=== PATIENT | male | born 1975 | race Caucasian/White ===

== ENCOUNTER 2020-05-21 12:48 | Emergency (ER) | payer BC ==
[~2020-05-21] VITALS: Ht 167.6 cm; Wt 71.9 kg
[2020-05-21] MEDS ORDERED: [UNRECOGNIZED DRUG - REMARK] (12:55)
[2020-05-21 13:58] LABS: BASO # 0.1 10^3/uL (0.0-0.2); BASO % 1.4 % (0.0-1.0); EOS # 0.2 10^3/uL (0.0-0.5); EOS % 2.9 % (0.0-3.0); HEMATOCRIT 45.2 % (42.0-52.0); HEMOGLOBIN 15.7 g/dl (13.5-17.5); LYMPH # 2.4 10^3/uL (1.5-5.0); MEAN CORPUSCULAR HEMOGLOBIN 30.3 pg (27.0-33.0); MEAN CORPUSCULAR HGB CONC 34.7 g/dl (32.0-36.5); MEAN CORPUSCULAR VOLUME 87.3 fl (80.0-96.0); MONO # 0.5 10^3/uL (0.0-0.8); MONO % 7.4 % (0.0-5.0); NEUTROPHILS # 3.3 10^3/uL (1.5-8.5); NEUTROPHILS % 50.4 % (36.0-66.0); PLATELET COUNT, AUTOMATED 254 10^3/uL (150-450); RED BLOOD COUNT 5.18 10^6/uL (4.30-6.10); WHITE BLOOD COUNT 6.5 10^3/uL (4.0-10.0)
[2020-05-21 14:07] LABS: INR 0.87
[2020-05-21 14:08] LABS: PARTIAL THROMBOPLASTIN TIME 26.7 SECONDS (25.0-38.4)
[2020-05-21 14:19] LABS: BLOOD UREA NITROGEN 17 MG/DL (7-18); CALCIUM LEVEL 9.3 MG/DL (8.5-10.1); CARBON DIOXIDE LEVEL 30 MEQ/L (21-32); CHLORIDE LEVEL 105 MEQ/L (98-107); CREATININE FOR GFR 0.76 MG/DL (0.70-1.30); GLOMERULAR FILTRATION RATE > 60.0 (>60); GLUCOSE, FASTING 89 MG/DL (70-100); SODIUM LEVEL 139 MEQ/L (136-145)
--- NOTE | 2020-05-21 14:35 | REPVR ---
PROCEDURE INFORMATION: Exam: US Retroperitoneal Limited, Kidneys Exam date and time: 05/21/2020 2:15 PM Age: 45 years old Clinical indication: Other: Gross hematuria; Additional info: Gross hematuria-painless TECHNIQUE: Imaging protocol: Real-time ultrasound of the retroperitoneum with image documentation. Examination was focused on the kidneys. COMPARISON: No relevant prior studies available. FINDINGS: Right kidney: The right kidney measures 11.2 x 6.0 x 6.0 cm. Its resistive index measures 0.55. It contains a septated cyst measuring 1.4 x 1.3 x 1.2 cm in the upper pole. No hydronephrosis or demonstrated stone or mass. Left kidney: The left kidney measures 12.6 x 6.4 x 6.3 cm. Its resistive index measures 0.65. It demonstrates moderate hydronephrosis and there is at least proximal hydroureter. No demonstrated stone, cyst or mass. Bladder: The urinary bladder demonstrates a right ureteral jet, with the left ureteral jet not visualized. IMPRESSION: 1. Moderate left-sided hydronephrosis with at least proximal hydroureter, with the left ureteral jet not visualized. Obstructing stone or lesion is possible, and further urologic evaluation is recommended. 2. 1.4 cm septated right renal cyst. Recommend renal protocol CT to determine whether this warrants further evaluation or follow-up. Electronically signed by: Rafael Mills On 05/21/2020 14:35:49 PM
--- NOTE | 2020-05-21 15:54 | REPVR ---
PROCEDURE INFORMATION: Exam: CT Abdomen And Pelvis Without Contrast Exam date and time: 05/21/2020 3:14 PM Age: 45 years old Clinical indication: Left hydronephrosis, hematuria TECHNIQUE: Imaging protocol: Computed tomography of the abdomen and pelvis without contrast. Coronal and sagittal reformats were created and reviewed. Radiation optimization: All CT scans at this facility use at least one of these dose optimization techniques: automated exposure control; mA and/or kV adjustment per patient size (includes targeted exams where dose is matched to clinical indication); or iterative reconstruction. COMPARISON: RENAL US 05/21/2020 2:12 PM FINDINGS: Lungs: The visualized lung bases are unremarkable. Liver: Liver is unremarkable. Gallbladder and bile ducts: The gallbladder is unremarkable. No intrahepatic or extrahepatic bile duct dilation. Pancreas: Pancreas is unremarkable. Spleen: Spleen is unremarkable. Adrenals: Adrenal glands are unremarkable. Kidneys and ureters: Obstructing left ureteropelvic junction 1.1 cm calculus with severe left hydronephrosis. No abnormal left ureteral dilation. No right hydronephrosis. Nonobstructing right kidney lower pole 5 mm calculus. Right kidney upper pole 1.5 x 0.9 cm hypoattenuating lesion is mildly heterogeneous containing some ill-defined intermediate attenuation material internally; this lesion corresponds to the septated cystic lesion seen on the recent renal ultrasound. No right ureteral calculus or abnormal dilation. Stomach and bowel: The stomach is decompressed; this limits evaluation of its wall thickness. No evidence of colonic inflammation or obstruction. No evidence of small bowel inflammation or obstruction. Appendix: The appendix is visualized and has a normal appearance. Intraperitoneal space: No free intraperitoneal fluid. No pneumoperitoneum. Vasculature: Atherosclerosis. No abdominal aortic aneurysm. Lymph nodes: No enlarged lymph nodes. Bladder: Urinary bladder is unremarkable. Reproductive: Nonspecific prostate calcification. Bones/joints: No acute osseous abnormality. L5-S1 intervertebral disc space narrowing and vertebral endplate osteophytosis. L5-S1 mild right neural foraminal stenosis. Soft tissues: Unremarkable. IMPRESSION: 1. Obstructing left ureteropelvic junction 1.1 cm calculus with severe left hydronephrosis. 2. Indeterminate right kidney upper pole 1.5 cm cystic lesion. Further evaluation with renal mass protocol precontrast and postcontrast CT or MRI is recommended. This corresponds to the septated cystic lesion seen on the recent renal ultrasound. 3. Nonobstructing right nephrolithiasis. Electronically signed by: Wofl Pinto On 05/21/2020 15:54:31 PM
[2020-05-21 17:06] VITALS: BP 145/95
--- NOTE | 2020-05-23 15:09 | ED PDOC ---
Post-Departure Follow-Up [facility] and dr harris fxed formal report of ct abd/p for fu Nimisha Chery MD May 23, 2020 15:09
--- NOTE | 2020-05-23 15:21 | ED PDOC ---
Post-Departure Follow-Up ct abd/p faxed formal rpeort of renal us for fu to dr harris and [facility]. Nimisha Alfaro lg, MD May 23, 2020 15:21
== END 2020-05-21 17:07 | disposition home or self-care (01) ==
LOC: M ED 12:48
DX: N20.2 Calculus of kidney with calculus of ureter (principal); N13.0 Hydronephrosis with ureteropelvic junction obstruction; N28.1 Cyst of kidney, acquired; Z79.899 Other long term (current) drug therapy

== ENCOUNTER → 2020-05-27 | Outpatient (CLI) | payer BC ==
[~2020-05-27] MED LIST: FLOM0.4C39 PO; OXYC1TAB23 PO; [UNRECOGNIZED DRUG - REMARK]
== END ==
LOC: M LABSMTC 14:29
PROVIDERS: ATTEND Anesthesiology
DX: Z01.812 Encounter for preprocedural laboratory examination (principal); Z20.828 Contact with and (suspected) exposure to other viral communicable diseases
CPT/HCPCS: C9803; U0002

== ENCOUNTER 2020-05-28 09:04 | Day surgery (SDC) | payer BC ==
[~2020-05-28] VITALS: Ht 167.6 cm; Wt 68.9 kg
[~2020-05-28 09:04] MED LIST changes: -FLOM0.4C39 PO; -OXYC1TAB23 PO
[2020-05-28] MEDS ORDERED: ceFAZolin 2 GM/D5W 50 ML IV BAG (J0690 PER 500MG) As Ordered ONE (09:52)
[2020-05-28] MEDS ORDERED: ceFAZolin SOD 2 GM in IV 1 EA IV ONE (10:15)
[2020-05-28] MEDS ORDERED: LIDOCAINE 2% 5ML JELLY UROJET As Ordered ONE (10:20)
[2020-05-28] MEDS ORDERED: fentaNYL 100 MCG/2 ML INJECTION (J3010) As Ordered ONE (10:22)
[2020-05-28] MEDS ORDERED: dexameTHASONE 4 MG/ML 1ML VIAL (J1100 PER 1MG) As Ordered ONE (10:23)
[2020-05-28] MEDS ORDERED: ONDANSETRON 4MG/2ML VIAL As Ordered ONE (10:23)
[2020-05-28] MEDS ORDERED: LIDOCAINE 2% 100MG/5ML SDV (FOR ANES.) As Ordered ONE (10:23)
[2020-05-28] MEDS ORDERED: propofoL 500 MG/50 ML VIAL As Ordered ONE (10:23)
[2020-05-28] MEDS ORDERED: ePHEDrine SULFATE 25 MG/5 ML(5MG/ML) SYRINGE As Ordered ONE (10:51)
[2020-05-28] MEDS ORDERED: FLOM0.4C39 PO (11:14)
[2020-05-28] MEDS ORDERED: OXYC1TAB23 PO (11:14)
--- NOTE | 2020-05-28 11:34 | ROOPDOC ---
[facility] Report Of Operation Report of Operation DATE OF PROCEDURE: 05/28/20 PREPROCEDURE DIAGNOSIS: Ureteral stone. POSTPROCEDURE DIAGNOSIS: Ureteral stone. PROCEDURE: Left extracorporeal shock wave lithotripsy, cystoscopy, left ureteral stent placement. SURGEON: John Pteerson MD GOLD LEAF GILDER: None. ANESTHESIA: Monitored anesthesia care (MAC). OPERATIVE INDICATIONS: This is a 45-year-old male recently found to have an obstructing 13mm proximal left ureteral stone. He was brought to the operating room today for treatment. DESCRIPTION OF PROCEDURE: The patient was brought to the operating room and monitored anesthesia care (MAC) was administered. Prophylactic antibiotics were infused. He was then prepped and draped in the supine position in the usual sterile fashion. A rigid cystoscope was then inserted into the urethral meatus and advanced into the bladder. The bladder was thoroughly examined and no bladder tumors were seen. Bilateral ureteral orifices were orthotopic. The urethra was unremarkable. A guidewire was then advanced up the left collecting system. The stone was readily seen in the proximal ureter on fluoroscopy. I was not able to advance the wire pass the stone. A 5 Czech open-ended ureteral catheter was then advanced over the wire and I was ultimately able to advance it pass the stone. The wire was removed and there was a hydronephrotic drip. The wire was then advanced back up the ureteral catheter and into the left renal pelvis. The ureteral catheter was removed and then the wire was utilized to advance a 6 Czech by 22- 32cm JJ ureteral stent into the left collecting system. The wire was removed and there were adequate curls of the stent in the left renal pelvis and in the bladder. The bladder was emptied of all fluid and then the patient was repositioned for left-sided extracorporeal shock wave lithotripsy. Fluoroscopy was utilized to monitor stone position and fragmentation throughout the procedure. Shock waves were then delivered to the 13 mm stone, ungated. There were no arrhythmias. The stone did appear to fragment well. After 2500 shocks, the procedure was concluded. The patient was then awakened from anesthesia and transported to the recovery room in stable condition. Estimated blood loss: Zero mL. Complications: None. Specimens: None. Plan: The patient will followup in the clinic in a few weeks with imaging prior to assess for residual stone burden. JOHN PETERSON MD May 28, 2020 11:34
[2020-05-28] MEDS ORDERED: KETOROLAC 30 MG/ML 1ML VIAL As Ordered ONE (12:18)
[2020-05-28] MEDS ORDERED: LR 1,000 ML IV SCH (12:30)
[2020-05-28] MEDS ORDERED: fentaNYL 100 MCG/2 ML INJECTION (J3010) IV PRN (12:30)
[2020-05-28] MEDS ORDERED: PERCOCET 5MG/325MG TAB PO PRN (12:45)
[2020-05-28] MEDS ORDERED: KETOROLAC 30 MG/ML 1ML VIAL IV PRN (13:00)
[2020-05-28 13:50] VITALS: BP 135/76
--- NOTE | 2020-06-16 08:10 | REP ---
ABDOMINAL RADIOGRAPH: CLINICAL: Kidney stone. TECHNIQUE: Single supine view of the abdomen and pelvis. FINDINGS: There is a 13 mm calculus overlying the left renal pelvis/proximal ureter. No further urinary tract calcifications are identified. The bowel gas pattern is nonspecific. No organomegaly. Skeletal structures are intact. IMPRESSION: 13 mm calculus overlies the left renal pelvis/proximal ureter. MTDD
== END 2020-05-28 14:00 | disposition home or self-care (01) ==
LOC: M SDC 09:04
PROVIDERS: ATTEND Urology
DX: N20.1 Calculus of ureter (principal)
CPT/HCPCS: 50590; 52332; 74018; C1769; C2617; J0690; J1100; J1885; J2405; J3010

== ENCOUNTER → 2020-06-23 | Outpatient (CLI) | payer BC ==
[~2020-06-23] MED LIST changes: +FLOM0.4C39 PO; +OXYC1TAB23 PO
[2020-06-23 15:08] LABS: HEMATOCRIT 43.8 % (42.0-52.0); HEMOGLOBIN 14.9 g/dl (13.5-17.5); MEAN CORPUSCULAR VOLUME 88.3 fl (80.0-96.0); PLATELET COUNT, AUTOMATED 282 10^3/uL (150-450); RED BLOOD COUNT 4.96 10^6/uL (4.30-6.10); WHITE BLOOD COUNT 7.1 10^3/uL (4.0-10.0)
[2020-06-23 15:39] LABS: BLOOD UREA NITROGEN 9 MG/DL (7-18); CALCIUM LEVEL 9.5 MG/DL (8.5-10.1); CARBON DIOXIDE LEVEL 28 MEQ/L (21-32); CHLORIDE LEVEL 105 MEQ/L (98-107); GLOMERULAR FILTRATION RATE > 60.0 (>60); GLUCOSE, FASTING 120 MG/DL (70-100); POTASSIUM SERUM 4.1 MEQ/L (3.5-5.1); SODIUM LEVEL 139 MEQ/L (136-145)
== END ==
LOC: M LAB 14:27
PROVIDERS: ATTEND Urology
DX: Z01.818 Encounter for other preprocedural examination (principal); N20.0 Calculus of kidney

== ENCOUNTER → 2020-06-23 | Outpatient (CLI) | payer BC ==
--- NOTE | 2020-06-29 16:13 | REP ---
KUB: SINGLE VIEW HISTORY: Calculus of kidney. COMPARISON: KUB 05/28/2020. FINDINGS: A double pigtailed left ureteral stent is noted in place. There is a 6-mm calcific density along the course of the stent in the location of the ureteropelvic junction on the left. This is decreased in size from the 13-mm calculus seen in this location on 05/28/2020. No other ureteral calculus is appreciated. There is a possible ureteropelvic junction (UPJ) or medial intrarenal calculus on the right measuring 4 mm. Bowel gas pattern is unremarkable. Study is otherwise negative. MTDD
== END ==
LOC: M RAD 12:02
PROVIDERS: ATTEND Nurse Practitioner Family
DX: N20.0 Calculus of kidney (principal)

== ENCOUNTER → 2020-06-24 | Outpatient (CLI) | payer BC | LOC: M LABSMTC 11:47 | PROVIDERS: ATTEND Anesthesiology | DX: Z01.812 Encounter for preprocedural laboratory examination (principal); Z20.828 Contact with and (suspected) exposure to other viral communicable diseases | CPT/HCPCS: C9803; U0002 ==

== ENCOUNTER 2020-06-25 12:02 | Day surgery (SDC) | payer BC ==
[~2020-06-25] VITALS: Ht 167.6 cm; Wt 70.8 kg
[~2020-06-25 12:02] MED LIST changes: +LR 1,000 ML IV ONE
[2020-06-25] MEDS ORDERED: ceFAZolin 2 GM/D5W 50 ML IV BAG (J0690 PER 500MG) As Ordered ONE (12:17)
[2020-06-25] MEDS ORDERED: OXYC1TAB23 PO ×2 (12:29→13:59)
[2020-06-25] MEDS ORDERED: ceFAZolin SOD 2 GM in IV 1 EA IV ONE (12:30)
[2020-06-25] MEDS ORDERED: CONRAY-60 60% 50ML VIAL (Q9961) As Ordered ONE (12:37)
[2020-06-25] MEDS ORDERED: MIDAZOLAM INJ 2MG/2ML VIAL (J2250 PER 1MG) As Ordered ONE (12:38)
[2020-06-25] MEDS ORDERED: fentaNYL 100 MCG/2 ML INJECTION (J3010) As Ordered ONE (12:38)
[2020-06-25] MEDS ORDERED: ONDANSETRON 4MG/2ML VIAL As Ordered ONE (12:39)
[2020-06-25] MEDS ORDERED: dexameTHASONE 4 MG/ML 1ML VIAL (J1100 PER 1MG) As Ordered ONE (12:39)
[2020-06-25] MEDS ORDERED: LIDOCAINE 2% 100MG/5ML SDV (FOR ANES.) As Ordered ONE (12:39)
[2020-06-25] MEDS ORDERED: propofoL 200 MG/20 ML VIAL As Ordered ONE (12:39)
[2020-06-25] MEDS ORDERED: ACETAMINOPHEN 1000MG 100ML IV BTL (OFIRMEV) (J0131 PER 10MG) As Ordered ONE (12:40)
[2020-06-25] MEDS ORDERED: LR 1,000 ML IV SCH (14:15)
[2020-06-25] MEDS ORDERED: ONDANSETRON 4MG/2ML VIAL IV PRN (14:15)
[2020-06-25] MEDS ORDERED: fentaNYL 100 MCG/2 ML INJECTION (J3010) IV PRN (14:15)
[2020-06-25] MEDS ORDERED: oxyCODONE 5MG TAB As Ordered ONE (14:20)
[2020-06-25] MEDS ORDERED: PERCOCET 5MG/325MG TAB PO PRN (14:30)
[2020-06-25] MEDS ORDERED: oxyCODONE 5MG TAB PO PRN (14:45)
[2020-06-25 14:58] VITALS: BP 135/81
--- NOTE | 2020-06-30 09:31 | RO ---
DATE OF OPERATION: 06/25/2020 PREOPERATIVE DIAGNOSIS: Left ureteral stones. POSTOPERATIVE DIAGNOSIS: Left ureteral stones, left ureteral mass. PROCEDURES: * Cystoscopy. * Left ureteroscopy and basket extraction of stones. * Left ureteral biopsies. * Left retrograde pyelogram with intraoperative interpretation of images. * Left ureteral stent exchange. SURGEON: Dayo Hurtado MD RN PLASMA CENTER: None. ANESTHESIA: General. OPERATIVE INDICATIONS: This is a 45-year-old male who underwent left extracorporeal shockwave lithotripsy and left ureteral stent placement approximately one month ago. On postoperative imaging it looked like he still had residual stones in the left ureter. He was brought to the operating room today to remove the remainder of the stones. DESCRIPTION OF PROCEDURE: The patient was brought to the operating room and general anesthesia induced. Prophylactic antibiotics were infused. He was placed in the dorsal lithotomy position and prepped and draped in usual sterile fashion. A rigid cystoscope was inserted into the urethral meatus and advanced into the bladder. A guidewire was advanced up the left collecting system. The left ureteral stent was removed. I then went up the left collecting system with short semi-rigid ureteroscope and looked in the mid to distal ureter; few small stone fragments were seen and removed using a basket. I then removed the short semi-rigid ureteroscope and advanced ureteral access sheath into the left collecting system. I went up the access sheath with a flexible ureteroscope and in the proximal ureter at the level of the ureteropelvic junction there were several more moderate size stone fragments that were removed using basket. These stones were stuck inside an area of papillary appearing tissue right at the ureteropelvic junction. The assumption is that this tissue was ureteral edema but tumor could not be ruled out. I examined the left kidney and no additional stones were seen inside the left kidney. I then obtained some biopsies of the papillary lesions at the ureteropelvic junction to be sent for pathologic analysis. I also obtained a ureteral washing to be sent for cytology. Once that was done a retrograde pyelogram was performed notable for moderate left hydronephrosis with no extravasation. I then removed the ureteroscope along the access sheath and no additional stones were seen inside the ureter. I then utilized a guidewire to advance a 6-Yoruba x 22-32 cm JJ ureteral stent into the left collecting system. The wire was removed and there were adequate curls of the stent in the left renal pelvis and in the bladder. The bladder was emptied of all fluids and this marked the conclusion of the procedure. The patient was then taken from the dorsal lithotomy position, awakened from anesthesia and transported to recovery room in stable condition. ESTIMATED BLOOD LOSS: 5 mL. COMPLICATIONS: None. SPECIMENS: Kidney stones, biopsy of left ureteral mass, left ureteral washing to cytology. PLAN: The patient will follow up in urology clinic in approximately 1-2 weeks for stent removal and to discuss the pathology results. SHELBI
--- NOTE | 2020-06-30 10:01 | REP ---
C-ARM VIEWS ABDOMEN AND PELVIS HISTORY: Left ureteral stent placement. TECHNIQUE: Two C-arm views of the abdomen and pelvis are performed. FINDINGS: Contrast partially opacifies a moderately dilated left pelvicalyceal system. A left ureteral stent is placed. The proximal end is coiled in the left renal pelvis. The distal end is coiled in the urinary bladder. FLUROSCOPY TIME: 11 seconds utilized. MTDD
[2020-07-04 14:08] LABS: Ca Ox Monohydrate 90 % (.)
== END 2020-06-25 15:17 | disposition home or self-care (01) ==
LOC: M SDC 12:02
PROVIDERS: ATTEND Urology
DX: N20.1 Calculus of ureter (principal); N28.89 Other specified disorders of kidney and ureter
CPT/HCPCS: 52332; 52352; 52354; 74420; 82365; 88108; 88300; 88305; C1769; C1894; C2617; J0131; J0690; J1100; J2250; J2405; J3010; Q9961

== ENCOUNTER → 2021-05-11 | Outpatient (REF) ==
[~2021-05-11] MED LIST changes: -LR 1,000 ML IV ONE
== END ==
LOC: M EMP 14:15
PROVIDERS: ATTEND Family Medicine
DX: Z20.822 Contact with and (suspected) exposure to COVID-19 (principal)

== ENCOUNTER → 2021-08-09 | Outpatient (REF) | LOC: M EMP 08:01 | PROVIDERS: ATTEND Family Medicine | DX: Z20.822 Contact with and (suspected) exposure to COVID-19 (principal) ==

== ENCOUNTER → 2021-08-11 | Outpatient (REF) | LOC: M LABSMTC 11:05 | PROVIDERS: ATTEND Family Medicine | DX: Z11.52 Encounter for screening for COVID-19 (principal) ==

== ENCOUNTER → 2021-08-27 | Outpatient (REF) ==
[2021-08-27 13:02] LABS: RSV AMPLIFICATION NEGATIVE (NEGATIVE)
== END ==
LOC: M LABSMTC 10:36
PROVIDERS: ATTEND Family Medicine
DX: Z11.52 Encounter for screening for COVID-19 (principal); Z20.822 Contact with and (suspected) exposure to COVID-19

== ENCOUNTER → 2021-10-22 | Outpatient (REF) | LOC: M LABSMTC 09:34 | PROVIDERS: ATTEND Family Medicine | DX: Z20.822 Contact with and (suspected) exposure to COVID-19 (principal) ==

== ENCOUNTER → 2021-12-08 | Outpatient (REF) ==
[2021-12-08 13:41] LABS: RSV AMPLIFICATION NEGATIVE (NEGATIVE)
== END ==
LOC: M LABSMTC 09:44
PROVIDERS: ATTEND Family Medicine
DX: Z20.822 Contact with and (suspected) exposure to COVID-19 (principal)

== ENCOUNTER → 2022-11-17 | Outpatient (REF) | LOC: M LABSMTC 10:18 | PROVIDERS: ATTEND Family Medicine | DX: Z11.52 Encounter for screening for COVID-19 (principal) ==

== ENCOUNTER → 2022-11-28 | Outpatient (CLI) | payer BC ==
[2022-11-28 09:14] LABS: ALBUMIN 4.3 G/DL (3.2-5.2); ALKALINE PHOSPHATASE 64 U/L (46-116); ALT/SGPT 44 U/L (7.0-40); AST/SGOT 33 U/L (<34); BILIRUBIN,TOTAL 0.8 MG/DL (0.3-1.2); BLOOD UREA NITROGEN 14 MG/DL (9-23); CALCIUM LEVEL 9.6 MG/DL (8.5-10.1); CARBON DIOXIDE LEVEL 26 MMOL/L (20-31); CHLORIDE LEVEL 106 MMOL/L (98-107); CHOLESTEROL LEVEL 219 MG/DL (<200); CHOLESTEROL RISK RATIO 5.71 (<5); CREATININE FOR GFR 0.76 MG/DL (0.70-1.30); GLOMERULAR FILTRATION RATE > 60.0 (>60); GLUCOSE, FASTING 82 MG/DL (60-100); HDL CHOLESTEROL 38.3 MG/DL (>40); LDL CHOLESTEROL 133.1 MG/DL (<100); NON-HDL-C 180.7 MG/DL; POTASSIUM SERUM 4.1 MMOL/L (3.5-5.1); SODIUM LEVEL 138 MMOL/L (136-145); TOTAL PROTEIN 7.4 G/DL (5.7-8.2); TRIGLYCERIDES LEVEL 238 MG/DL (<150)
== END ==
LOC: M LAB 08:16
PROVIDERS: ATTEND Nurse Practitioner Family
DX: F51.01 Primary insomnia (principal); F41.9 Anxiety disorder, unspecified; L40.50 Arthropathic psoriasis, unspecified; Z13.220 Encounter for screening for lipoid disorders

== ENCOUNTER → 2023-12-15 | Outpatient (REF) | payer BC ==
[~2023-12-15] MED LIST changes: +AMOXIC; +DOXY-443 PO; +HYDR-3363 PO; +SERT25TA85 PO; +TRAZ-186 PO; +valcyclovir
[2023-12-15 17:49] LABS: ALBUMIN 4.5 G/DL (3.2-5.2); ALKALINE PHOSPHATASE 58 U/L (46-116); ALT/SGPT 39 U/L (7.0-40); AST/SGOT 25 U/L (<34); BILIRUBIN,TOTAL 0.7 MG/DL (0.3-1.2); BLOOD UREA NITROGEN 18 MG/DL (9-23); CALCIUM LEVEL 9.5 MG/DL (8.5-10.1); CARBON DIOXIDE LEVEL 28 MMOL/L (20-31); CHLORIDE LEVEL 105 MMOL/L (98-107); CHOLESTEROL LEVEL 238 MG/DL (<200); CHOLESTEROL RISK RATIO 6.11 (<5); CREATININE FOR GFR 0.83 MG/DL (0.70-1.30); GLOMERULAR FILTRATION RATE > 60.0 (>60); GLUCOSE, FASTING 93 MG/DL (60-100); HDL CHOLESTEROL 38.9 MG/DL (>40); LDL CHOLESTEROL 172.1 MG/DL (<100); NON-HDL-C 199.1 MG/DL; POTASSIUM SERUM 4.6 MMOL/L (3.5-5.1); SODIUM LEVEL 139 MMOL/L (136-145); TOTAL PROTEIN 7.2 G/DL (5.7-8.2); TRIGLYCERIDES LEVEL 135 MG/DL (<150)
== END ==
LOC: M SFHCCLAY 10:33
PROVIDERS: ATTEND Nurse Practitioner Family
DX: F51.01 Primary insomnia (principal); F41.9 Anxiety disorder, unspecified; L40.50 Arthropathic psoriasis, unspecified; E78.5 Hyperlipidemia, unspecified

== ENCOUNTER → 2024-03-11 | Outpatient (REF) | payer BC ==
[~2024-03-11] MED LIST changes: +DOXY-323 PO; -DOXY-443 PO
[2024-03-11 18:11] LABS: BASO # 0.1 10^3/uL (0.0-0.2); EOS # 0.2 10^3/uL (0.0-0.5); EOS % 2.3 % (0.0-3.0); HEMATOCRIT 42.8 % (42.0-52.0); LYMPH # 2.1 10^3/uL (1.5-5.0); LYMPH % 26.7 % (24.0-44.0); MEAN CORPUSCULAR HEMOGLOBIN 30.1 pg (27.0-33.0); MEAN CORPUSCULAR VOLUME 85.8 fl (80.0-96.0); MONO # 0.6 10^3/uL (0.0-0.8); MONO % 7.1 % (2.0-8.0); NEUTROPHILS # 4.9 10^3/uL (1.5-8.5); NEUTROPHILS % 62.1 % (36.0-66.0); PLATELET COUNT, AUTOMATED 251 10^3/uL (150-450); RED BLOOD COUNT 4.99 10^6/uL (4.30-6.10); WHITE BLOOD COUNT 7.9 10^3/uL (4.0-10.0)
[2024-03-11 18:40] LABS: ALBUMIN 3.7 G/DL (3.2-5.2); ALKALINE PHOSPHATASE 82 U/L (46-116); ALT/SGPT 32 U/L (7.0-40); AST/SGOT 18 U/L (<34); BILIRUBIN,TOTAL 0.3 MG/DL (0.3-1.2); BLOOD UREA NITROGEN 14 MG/DL (9-23); CALCIUM LEVEL 9.8 MG/DL (8.5-10.1); CARBON DIOXIDE LEVEL 28 MMOL/L (20-31); CHLORIDE LEVEL 108 MMOL/L (98-107); CREATININE FOR GFR 0.83 MG/DL (0.70-1.30); GLOMERULAR FILTRATION RATE > 60.0 (>56); GLUCOSE, FASTING 93 MG/DL (60-100); POTASSIUM SERUM 4.4 MMOL/L (3.5-5.1); SODIUM LEVEL 141 MMOL/L (136-145); TOTAL PROTEIN 6.7 G/DL (5.7-8.2)
== END ==
LOC: M SFHCCLAY 13:55
PROVIDERS: ATTEND Physician Assistant
DX: S20.96XA Insect bite (nonvenomous) of unspecified parts of thorax, initial encounter (principal)